=== PATIENT | male | born 1975 | race Two or more races ===

== ENCOUNTER 2021-05-02 12:27 | Emergency (ER) | payer BC ==
[~2021-05-02] VITALS: Ht 172.7 cm; Wt 81.6 kg
[2021-05-02] MEDS ORDERED: KETOROLAC TROMETHAMINE 30 MG INJ IM ONE (12:45)
[2021-05-02] MEDS ORDERED: LAMICTAL (12:47)
[2021-05-02] MEDS ORDERED: ASPI81TA31 PO (12:47)
[2021-05-02] MEDS ORDERED: ADDERALL (12:47)
[2021-05-02] MEDS ORDERED: MULTIVITAMINS (12:47)
[2021-05-02] MEDS ORDERED: IBUP800T54 PO (12:51)
[2021-05-02] MEDS ORDERED: HYDR-4209 PO (12:51)
[2021-05-02] MEDS ORDERED: KETOROLAC TROMETHAMINE 30 MG INJ ONE (13:03)
--- NOTE | 2021-05-02 13:21 | NUR ---
Medication administered IM to (L) delt. Denies any adverse event from medication. States improvement in pain, more tolerable. Patient discharged to home in stable condition. Written and verbal after care instructions given. Patient verbalizes understanding of instructions. Stressed follow up or return to ER for worsening s/s.
[2021-05-02 14:01] VITALS: BP 117/57
== END 2021-05-02 13:18 | disposition home or self-care (01) ==
LOC: ER 12:29
DX: S49.92XA Unspecified injury of left shoulder and upper arm, initial encounter (principal); S93.401A Sprain of unspecified ligament of right ankle, initial encounter; M54.9 Dorsalgia, unspecified; V43.32XA Unspecified car occupant injured in collision with other type car in nontraffic accident, initial encounter; Y93.89 Activity, other specified; Y92.89 Other specified places as the place of occurrence of the external cause; F90.9 Attention-deficit hyperactivity disorder, unspecified type; Z79.899 Other long term (current) drug therapy
CPT/HCPCS: 29105; 96372; 99283; J1885; A4663